=== PATIENT | female | born 1970 | race Caucasian/White ===

== ENCOUNTER 2016-12-09 17:23 | Emergency (ER) | payer MEDICARE, MEDICAID ==
--- NOTE | 2016-12-17 13:04 | CO ---
ADMIT: 12/09/2016 RM/LOC: [facility] MR#: [id number] 2620 [facility] [address] [place] [id number] ZENIA MOSQUEDA [address] [place] [address] Consultation SEX: F AGE: 45 : 1970 DATE OF CONSULTATION: 12/09/2016 ATTENDING PHYSICIAN: Jovanny Nicole CONSULTING PHYSICIAN: Jose Baker MD REASON FOR CONSULTATION: Hypoxemia and severe pulmonary hypertension. HISTORY OF PRESENT ILLNESS: Zenia Mosqueda is a very pleasant, 45-year-old female. She has a history of severe pulmonary hypertension. Most recent echo I have access to was an echo in March of 2016 that revealed a pulmonary pressures estimated to be 120 mmHg. She reports to me she is on sildenafil and Opsumit. She is also being treated for chronic thromboembolic pulmonary disease and has been on Xarelto. There was some concern that she also has factor V Leiden deficiency, although I do not have any of the details with regard to that. She is being treated with Xarelto. She presents with increasing shortness of breath today. She had some bandlike abdominal pain as well bilaterally. She has not had nausea or vomiting or diarrhea. I was asked she drove here from [place] without her chronic 4 L/minute of oxygen and presented with saturations in the 70s. They had some difficulty getting her saturations back up with supplemental oxygen, but ultimately, they were able to do so. She apparently has an appointment with Dr. Axel Barillas later this month. At this point, she is slightly tachypneic, but her breathing is somewhat improved when compared to the way it was earlier. PAST MEDICAL HISTORY: Includes: 1. Severe pulmonary hypertension estimated to 120 mmHg in March of 2016. 2. History of chronic PEs. 3. Possible Factor V Leiden deficiency. 4. Morbid obesity. 5. GERD. PAST SURGICAL HISTORY: Includes cholecystectomy. FAMILY HISTORY: Includes multiple family members with clotting disorder. SOCIAL HISTORY: She is a nonsmoker. MEDICATIONS: Include: 1. Opsumit. 2. Sildenafil at this time. REVIEW OF SYSTEMS: Full review of systems is done with the patient and is negative unless mentioned. PHYSICAL EXAMINATION: VITAL SIGNS: Blood pressure 136/94, heart rate 93, respiratory rate 15, she is afebrile, AND she is saturating 95% on 5 L. GENERAL: The patient is awake, alert, no acute distress. HEENT: Pupils reactive. ADMIT: 12/09/2016 RM/LOC: ER [facility] MR#: [id number] [address] [id number] ZENIA MOSQUEDA [address] [place] [address] Consultation SEX: F AGE: 45 : 1970 NECK: Supple. HEART: Regular rate and rhythm. LUNGS: Clear. ABDOMEN: Some mild tenderness right upper quadrant. EXTREMITIES: Trace edema. SKIN: No obvious rashes or lesions. MUSCULOSKELETAL: Deferred. NEUROLOGIC: Nonfocal. LABORATORY DATA: Sodium 143, potassium 4.6, chloride 109, CO2 of 26, BUN is 21, creatinine is 1.5. White count 9, hemoglobin 13, hematocrit 48, and platelets 202. IMAGING: CT of the chest was extensively reviewed. I also discussed with radiologist. Initially, there was thought that she had new thrombus in the right mainstem artery near the bifurcation. Upon further review, I think her mediastinum looks full with indistinct borders. I believe the area that appears to be a clot in the right mainstem was probably volume averaging from that. She also has some calcium in the right hilar area that does not appear she has much blood flow at all to the right lower lobe, which appears to be stable when compared to the CT scan from 2014. In all, I think the big picture this is probably represents fibrosing mediastinitis. IMPRESSION: 1. Severe pulmonary hypertension. 2. Possible pulmonary embolism with chronic thromboembolic pulmonary disease. 3. Fibrosing mediastinitis. 4. Morbid obesity. 5. Acute dyspnea. PLAN/RECOMMENDATIONS: I have spoken with [facility]. She does follow with Dr. Axel Barillas. There is no pulmonary coverage here at [place] for the week and therefore I think a transfer would be in order. They have kindly accepted the patient. I made a progressive status. I do not see any indication for care in the ICU at this time. We will transport her via ground to [place]. Jose Baker MD/ lyle JOB #: [id number] CC: Jovanny Nicole, Attending Physician Yared Clay, Family Physician Axel Barillas III, MD
--- NOTE | 2016-12-17 14:40 | ER ---
ADMIT: 12/09/2016 RM/LOC: ER [facility] MR#: [id number] 2620 [facility] [address] [place], [place] [id number] ZENIA MOSQUEDA [address] [place] [address] Emergency Room Report SEX: F AGE: 45 : 1970 DATE: 12/09/2016 ADDENDUM: This patient comes to the ER because for the last 5 hours, she has had severe shortness of breath. She has known issues with having PE's. She is supposed to be on 5 L of oxygen. However, she comes to the ER without any oxygen and rates her severity of shortness of breath as a 10. She is concerned that she has another pulmonary embolus. She denies any cough, any fevers. PHYSICAL EXAMINATION: GENERAL: This is an obese 45-year-old, white female, very poor hygiene. VITAL SIGNS: As follows; blood pressure 118/64, heart rate 116, respiratory rate 30, and her O2 saturation was 84%. We immediately put her on oxygen and brought her O2 levels to about 92%. However, she continues to have a respiratory rate of 30. EMERGENCY DEPARTMENT COURSE: Her CBC was normal. Her creatinine was 1.6. We did do a CTA of her chest. Initially, the radiologist felt that she had some new PE's from her previous study. I spoke with Dr. Espinal, who was on-call for Dr. Clay. She came in and examined the patient, and I also spoke with Dr. Baker, the supervisor continuous weld pipe mill, who also came in and examined the patient as well. There was some discussion with the radiologist about the results of the CT scan and there was some question about the patient having mediastinitis fibrosis. 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 Dr. Baker spoke with Dr. Camacho, the fire alarm operator at [facility], and she will be transferred there. Please see Dr. Espinal's and Dr. Baker's dictation. DIAGNOSES: 1. Mediastinitis fibrosis. 2. Morbid obesity. 3. History of pulmonary embolism. 4. Shortness of breath. Please see my T-sheet. ODALYS Nance / Desmond Cash MD / modl JOB #: [id number] CC: Jovanny Nicole MD, Attending Physician Jose Nunez MD, Family Physician
[2017-04-22] MEDS ORDERED: TESSALON PERLE100 M1 PO (17:09)
[2017-04-22] MEDS ORDERED: LASIX DPS80 MG PO (17:09)
[2017-04-22] MEDS ORDERED: TYLENOL DPS325 MG PO (17:09)
[2017-04-22] MEDS ORDERED: IOPHEN C NR PO (17:10)
[2017-04-22] MEDS ORDERED: OPSUMIT10 MG PO (17:11)
[2017-04-22] MEDS ORDERED: XARELTO20 MG PO (17:11)
[2017-04-22] MEDS ORDERED: REVATIO20 MG PO (17:11)
[2017-04-22] MEDS ORDERED: ZAROXOLYN2.5 MG PO (17:11)
[2017-04-22] MEDS ORDERED: KENALOG OINT. 015 GM TP (17:12)
[2017-04-22] MEDS ORDERED: VIBRAMYCIN-DPS100 M2 PO (17:12)
== END 2016-12-09 22:38 | disposition short-term general hospital (02) ==
LOC: ER 17:23
DX: J98.51 Mediastinitis (principal); E66.01 Morbid (severe) obesity due to excess calories; Z86.711 Personal history of pulmonary embolism; Z86.718 Personal history of other venous thrombosis and embolism; Z79.01 Long term (current) use of anticoagulants; Z91.040 Latex allergy status; Z79.899 Other long term (current) drug therapy